=== PATIENT | female | born 1940 | race Caucasian/White ===

== ENCOUNTER 2018-02-18 14:14 | Emergency (ER) | payer MEDICARE ==
[~2018-02-18] VITALS: Ht 157.5 cm; Wt 55.0 kg
[~2018-02-18 14:14] MED LIST: ASPI-515 PO; CHOL20002 PO; LEVO50TA5 PO; LOSA50TA6 PO; MIRA25TA PO; NIAC500T9 PO; OMEG1CAP39 PO; ROSU20TA PO
[2018-02-18 14:15] VITALS: BP 101/68
== END 2018-02-18 16:01 | disposition home or self-care (01) ==
LOC: ED 15:55
DX: S92.002A Unspecified fracture of left calcaneus, initial encounter for closed fracture (principal); I10 Essential (primary) hypertension; X58.XXXA Exposure to other specified factors, initial encounter; Y93.89 Activity, other specified; Y99.8 Other external cause status; Y92.89 Other specified places as the place of occurrence of the external cause
CPT/HCPCS: 29515; 99284

== ENCOUNTER → 2018-07-30 | Outpatient (CLI) | payer MEDICARE ==
[~2018-07-30] MED LIST changes: -CHOL20002 PO; +CHOL200085 PO; -LOSA50TA6 PO; +LOSA50TA7 PO
== END | disposition home or self-care (01) ==
LOC: CFH 08:12
PROVIDERS: ATTEND Physician Assistant
DX: I79.0 Aneurysm of aorta in diseases classified elsewhere (principal); I34.0 Nonrheumatic mitral (valve) insufficiency
CPT/HCPCS: 78452; 93017; A9502

== ENCOUNTER 2019-06-23 10:32 | Outpatient (CLI) | payer MEDICARE ==
[~2019-06-23 10:32] MED LIST changes: +CHOL20002 PO; -CHOL200085 PO; +LOSA50TA14 PO; -LOSA50TA7 PO; -ROSU20TA PO; +ROSU20TA2 PO
== END 2019-06-23 23:59 | disposition home or self-care (01) ==
LOC: CFH 10:32
PROVIDERS: ATTEND Internal Medicine Cardiovascular Disease
DX: I08.3 Combined rheumatic disorders of mitral, aortic and tricuspid valves (principal); I10 Essential (primary) hypertension; Z87.891 Personal history of nicotine dependence; E78.5 Hyperlipidemia, unspecified; I79.0 Aneurysm of aorta in diseases classified elsewhere
CPT/HCPCS: 93306

== ENCOUNTER 2020-07-18 11:15 | Day surgery (SDC) | payer MEDICARE ==
[~2020-07-18] VITALS: Ht 160 cm; Wt 54.5 kg
[2020-07-18 11:57] VITALS: BP 135/78
[2020-07-18] MEDS ORDERED: SODIUM CHLORIDE 0.9% 1,000 ML IV SCH (12:00)
[2020-07-18] MEDS ORDERED: NITR0.4T28 SL (12:11)
[2020-07-18] MEDS ORDERED: TRAM50TA2 PO (12:11)
[2020-07-18] MEDS ORDERED: HYDR25TA6 PO (12:11)
[2020-07-18] MEDS ORDERED: ALIR75PE SQ (12:11)
[2020-07-18 12:35] LABS: ANION GAP 11 mmol/L (5-15); CALCIUM 9.6 mg/dL (8.5-10.1); CHLORIDE 105 mmol/L (98-107)
[2020-07-18 12:36] LABS: BASOPHILS % (AUTO) 1 % (0-1); EOSINOPHILS % (AUTO) 2 % (1-7); LYMPHOCYTES % (AUTO) 33 % (22-44); MEAN CORPUSCULAR HEMOGLOBIN 28.4 pg (27.0-34.8); MEAN CORPUSCULAR HGB CONC 32.7 g/dL (32.4-35.8); MEAN PLATELET VOLUME 8.1 fL (7.4-10.4); MONOCYTES % (AUTO) 12 % (2-9); NEUTROPHILS % (AUTO) 53 % (42-75); PLATELET COUNT 249 x10^3/uL (130-400); RED BLOOD COUNT 4.91 x10^6/uL (3.82-5.3); RED CELL DISTRIBUTION WIDTH 18.2 % (9.6-15.2)
[2020-07-18 12:38] LABS: MD NO
[2020-07-18] MEDS ORDERED: MIDAZOLAM 1 MG/ML, 5ML ONE (13:07)
[2020-07-18] MEDS ORDERED: FENTANYL PF 100 MCG/2ML ONE (13:07)
[2020-07-18] MEDS ORDERED: VERAPAMIL 2.5 MG/ML, 2ML ONE ×2 (13:08→13:20)
[2020-07-18] MEDS ORDERED: LIDOCAINE-MPF 1%, 5ML ONE (13:08)
[2020-07-18] MEDS ORDERED: HEPARIN 1,000 UNITS/ML, 10ML ONE (13:08)
[2020-07-18] MEDS ORDERED: BIVALIRUDIN 250 MG ONE (13:08)
[2020-07-18] MEDS ORDERED: NITROGLYCERIN 30 MCG/ML, 20ML VIAL ONE (13:09)
== END 2020-07-18 16:14 | disposition home or self-care (01) ==
LOC: CACL 11:15
PROVIDERS: ATTEND Internal Medicine Cardiovascular Disease
DX: I25.110 Atherosclerotic heart disease of native coronary artery with unstable angina pectoris (principal); I34.0 Nonrheumatic mitral (valve) insufficiency; I10 Essential (primary) hypertension; E78.00 Pure hypercholesterolemia, unspecified; Z79.82 Long term (current) use of aspirin; Z79.890 Hormone replacement therapy; Z79.891 Long term (current) use of opiate analgesic; Z79.899 Other long term (current) drug therapy; Z88.2 Allergy status to sulfonamides; Z88.5 Allergy status to narcotic agent; Z88.8 Allergy status to other drugs, medicaments and biological substances; Z95.5 Presence of coronary angioplasty implant and graft
CPT/HCPCS: 36415; 80048; 85025; 93458; 99156; 99157; C1769; C1894; J1644; J2250; J3010; Q9967; J0583

== ENCOUNTER 2020-09-10 07:17 | Emergency (ER) | payer MEDICARE ==
[~2020-09-10] VITALS: Ht 160 cm; Wt 52.0 kg
[~2020-09-10 07:17] MED LIST changes: +ALIR75PE SQ; +HYDR25TA6 PO; +NITR0.4T28 SL; +TRAM50TA2 PO
--- NOTE | 2020-09-10 07:37 | NUR ---
PT NON DISCRIPT ON REASON FOR BEING HERE WHILE PA AT THE BS [facility] AFTER INITIAL EXAM THEN TO THE BS PA AWARE INTO THE ROOM AND WILL QUESTION/INTERVIEW
--- NOTE | 2020-09-10 07:46 | NUR ---
PT UP TO BR AMBULATES WELL W CONTACT ASSIST FROM
[2020-09-10 08:15] LABS: BASOPHILS % (AUTO) 1 % (0-1); EOSINOPHILS % (AUTO) 3 % (1-7); LYMPHOCYTES % (AUTO) 36 % (22-44); MEAN CORPUSCULAR HEMOGLOBIN 28.4 pg (27.0-34.8); MEAN CORPUSCULAR HGB CONC 32.9 g/dL (32.4-35.8); MEAN PLATELET VOLUME 8.4 fL (7.4-10.4); MONOCYTES % (AUTO) 16 % (2-9); NEUTROPHILS % (AUTO) 44 % (42-75); PLATELET COUNT 231 x10^3/uL (130-400); RED BLOOD COUNT 4.68 x10^6/uL (3.82-5.3); RED CELL DISTRIBUTION WIDTH 16.3 % (9.6-15.2)
[2020-09-10 08:16] LABS: MD NO
[2020-09-10 08:28] LABS: ALBUMIN 4.7 g/dL (3.4-5.0); ANION GAP 9 mmol/L (5-15); CALCIUM 10.4 mg/dL (8.5-10.1); CHLORIDE 98 mmol/L (98-107)
[2020-09-10 08:34] LABS: ALANINE AMINOTRANSFERASE 33 U/L (12-78); ALKALINE PHOSPHATASE 53 U/L (45-117); BILIRUBIN,TOTAL 0.9 mg/dL (0.2-1.0); CREATININE 1.98 mg/dL (0.55-1.02); TOTAL PROTEIN 7.7 g/dL (6.4-8.2)
[2020-09-10] MEDS ORDERED: SODIUM CHLORIDE 0.9% 1,000ML IVBOLUS ONE (09:00)
[2020-09-10] MEDS ORDERED: SODIUM CHLORIDE FLUSH 10ML SYR IVF ONE (09:00)
[2020-09-10 09:38] LABS: MICROSCOPIC INDICATED
--- NOTE | 2020-09-10 09:48 | NUR ---
UA COLLECTED BY [facility] SENT TO LAB
[2020-09-10 12:03] VITALS: BP 128/80
== END 2020-09-10 12:06 | disposition home or self-care (01) ==
LOC: ED 07:45
DX: N28.9 Disorder of kidney and ureter, unspecified (principal); R94.31 Abnormal electrocardiogram [ECG] [EKG]; I11.9 Hypertensive heart disease without heart failure
CPT/HCPCS: 36415; 71045; 80053; 81001; 85025; 93005; 96360; 96361; 99285; J7030